=== PATIENT | female | born 1985 | race American Indian/Alaskan Native ===

== ENCOUNTER 2019-06-05 17:56 | Emergency (ER) | payer SELFPAY ==
--- NOTE | 2019-06-05 18:09 | Event Note ---
ED Screening Note Date of service: 06/05/19 Time: 18:07 ED Screening Note: 33 y o f presents with throat pain This initial assessment/diagnostic orders/clinical plan/treatment(s) is/are subject to change based on patients health status, clinical progression and re- assessment by fellow clinical providers in the ED. Further treatment and workup at subsequent clinical providers discretion. Patient/guardian urged not to elope from the ED as their condition may be serious if not clinically assessed and managed. Initial orders include: rapid strep
[2019-06-05] MEDS ORDERED: BICILLIN L-A IM STA (21:01)
[2019-06-05] MEDS ORDERED: DECADRON PO ONE (21:01)
--- NOTE | 2019-06-05 21:11 | Emergency Department Report ---
ED ENT HPI - General Chief complaint: Sore Throat Stated complaint: FLU/STREP THROAT Time Seen by Provider: 06/05/19 18:06 Source: patient Mode of arrival: Ambulatory Limitations: No Limitations - History of Present Illness MD complaint: sore throat -: Gradual, week(s) (1 week) Location: throat Severity: moderate Quality: constant (throbbing) Consistency: constant Worsens with: swallowing, eating Associated Symptoms: pain with swallowing, sore throat. denies: discharge from ear, rhinorrhea - Related Data Home Medications Medication Instructions Recorded Confirmed Last Taken No Known Home Medications [No 10/08/13 10/08/13 Unknown Reported Home Medications] Allergies Allergy/AdvReac Type Severity Reaction Status Date / Time No Known Allergies Allergy Verified 10/08/13 09:16 ED Dental HPI - General Chief complaint: Sore Throat Stated complaint: FLU/STREP THROAT Time Seen by Provider: 06/05/19 18:06 Source: patient Mode of arrival: Ambulatory Limitations: No Limitations - Related Data Home Medications Medication Instructions Recorded Confirmed Last Taken No Known Home Medications [No 10/08/13 10/08/13 Unknown Reported Home Medications] Allergies Allergy/AdvReac Type Severity Reaction Status Date / Time No Known Allergies Allergy Verified 10/08/13 09:16 ED Review of Systems ROS: Stated complaint: FLU/STREP THROAT Other details as noted in HPI Comment: All other systems reviewed and negative ED Past Medical Hx - Past Medical History Previous Medical History?: Yes Hx Congestive Heart Failure: No Hx Diabetes: No Hx Asthma: No Hx COPD: No Additional medical history: Vaginal delivery x 4 - Surgical History Past Surgical History?: No - Social History Smoking Status: Never Smoker Substance Use Type: None - Medications Home Medications: Home Medications Medication Instructions Recorded Confirmed Last Taken Type No Known Home Medications [No 10/08/13 10/08/13 Unknown History Reported Home Medications] ED Physical Exam - General Limitations: No Limitations General appearance: alert, in no apparent distress - ENT ENT exam: Present: other (heavy exudate to the posterior pharynx tonsils are erythematous with some mild swelling. No abscess appreciated. Tongue and uvula are midline. Airway is patent. No drooling. Tonsillar lymphadenopathy is appreciated) - Neck Neck exam: Present: full ROM, lymphadenopathy ED Course Vital Signs 06/05/19 17:57 Temperature 97.9 F Pulse Rate 79 Respiratory 20 Rate Blood Pressure 105/55 O2 Sat by Pulse 97 Oximetry ED Medical Decision Making - Medical Decision Making 33-year-old female with odynophagia and positive strep test. Patient opted to have a injection and she did not wish to take oral medication repeatedly for 70s and 80s. She was treated with Bicillin LA intramuscular Decadron to the posterior pharynx. Critical care attestation.: If time is entered above; I have spent that time in minutes in the direct care of this critically ill patient, excluding procedure time. ED Disposition Clinical Impression: Exudative pharyngitis Disposition: DC-01 TO HOME OR SELFCARE Is pt being admited?: No Does the pt Need Aspirin: No Condition: Stable Instructions: Strep Throat (ED) Referrals: PRIMARY CARE, [Primary Care Provider] - 3-5 Days [facility] [Provider Group] - 3-5 Days
[2019-06-05 21:57] VITALS: BP 108/55
== END 2019-06-05 21:55 | disposition home or self-care (01) ==
LOC: ED 17:56
DX: J02.0 Streptococcal pharyngitis (principal)
CPT/HCPCS: 87430; 96372; 99283; J0561; J1100